=== PATIENT | female | born 1950 | race Caucasian/White ===

== ENCOUNTER 2018-07-10 09:48 | Outpatient (CLI) | payer BC, SELFPAY ==
--- NOTE | 2018-07-10 09:41 | DI.RAD_ITS ---
SYMPTOM/DIAGNOSIS: LEFT KNEE PAIN LEFT KNEE: There is severe narrowing of the lateral patellofemoral joint with prominent patellar spurring greatest laterally and superiorly. There is also spurring from the femoral condyles and tibial plateaus. The femoral tibial joint spaces are well maintained. 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
--- NOTE | 2018-07-10 09:41 | DI.RAD_ITS ---
SYMPTOM/DIAGNOSIS: RIGHT KNEE PAIN RIGHT KNEE: There is severe narrowing of the lateral patellofemoral joint. There is prominent lateral spurring as well as lateral subluxation. There is mild spurring from the femoral condyles and tibial plateau but no significant joint space narrowing. No joint effusion is visible. IMPRESSION: Severe degenerative changes of the lateral patellofemoral joint.
== END 2018-07-10 10:08 ==
PROVIDERS: Visit Provider Physician Assistant
DX: M25.561 Pain in right knee (principal); M17.0 Bilateral primary osteoarthritis of knee; M25.562 Pain in left knee
CPT/HCPCS: 73564